=== PATIENT | female | born 1945 | race Caucasian/White ===

== ENCOUNTER 2018-12-29 18:57 | Inpatient (IN) | payer MEDICARE, MEDICAID ==
[~2018-12-29] VITALS: Ht 152.4 cm; Wt 81.6 kg
[~2018-12-29 18:57] MED LIST: ASPI-1159 PO; BENA40TA9 PO; CIPR-213 PO; GLIP5TAB12 PO; LOSA25TA12 PO; METF-416 PO; OMEP20CA4 PO; PANT40TA4 PO; PHEN-815 PO; SIMV40TA5 PO; SITA50TA3 PO
[2018-12-29] MEDS ORDERED: MORPHINE SULFATE 4 MG/ML CPJ (NOT FOR IM USE) IV STA (22:05)
[2018-12-29] MEDS ORDERED: KETOROLAC 30MG/ML VIAL IV STA (22:05)
[2018-12-29] MEDS ORDERED: FAMOTIDINE 20MG/2ML VIAL IV STA (22:05)
[2018-12-29] MEDS ORDERED: SODIUM CHLORIDE 0.9% 1,000 ML IV ONE (22:05)
[2018-12-29] MEDS ORDERED: ONDANSETRON HCL 4MG/2ML INJ IV STA (22:05)
[2018-12-29] MEDS ORDERED: METRONIDAZOLE 500 MG PREMIX 100 ML IV ONE (22:15)
[2018-12-29] MEDS ORDERED: PIPERACILLIN/TAZ 3.375G PREMIX 50 ML IV ONE (22:15)
[2018-12-29 22:38] LABS: BASOPHILS % 0.6 % (0.0-2.0); EOSINOPHILS % 0.5 % (0.0-5.0); HEMATOCRIT. 35.8 % (36.0-48.0); HEMOGLOBIN. 11.8 g/dL (12.0-16.0); LYMPHOCYTES % 25.8 % (20.0-50.0); MEAN CORPUSCULAR HEMOGLOBIN 27.8 pg (28.0-32.0); MEAN PLATELET VOLUME 7.7 fl (7.4-10.4); MONOCYTES % 10.5 % (2.0-8.0); NEUTROPHILS % 62.6 % (40.0-76.0); PLATELET 229 x1000/uL (130-400); RED BLOOD CELL COUNT 4.26 mill/uL (4.2-5.4); RED CELL DISTRIBUTION WIDTH 16.8 % (11.6-14.6)
[2018-12-29 22:43] LABS: CHLORIDE 97 mEq/L (98-107)
[2018-12-29 22:45] LABS: INR 1.2; PROTHROMBIN TIME 11.8 sec (9.1-11.1)
[2018-12-29 22:46] LABS: CLARITY URINE CLEAR (CLEAR); COLOR URINE YELLOW (YELLOW); KETONES URINE NEGATIVE (NEGATIVE); LEUKOCYTE ESTERASE URINE NEGATIVE (NEGATIVE); NITRITE URINE NEGATIVE (NEGATIVE); OCCULT BLOOD URINE NEGATIVE (NEGATIVE); PROTEIN URINE NEGATIVE (NEGATIVE); SPECIFIC GRAVITY URINE 1.004 (1.005-1.030); UROBILINOGEN URINE 0.2 E.U./dL (0.2-1.0)
[2018-12-29 22:47] LABS: ETHANOL BLOOD < 10 mg/dL
[2018-12-29 22:59] LABS: *AMPHETAMINES SCREEN URINE NEGATIVE (NEGATIVE); *BARBITURATES SCREEN URINE NEGATIVE (NEGATIVE); *BENZODIAZEPINES SCREEN URINE NEGATIVE (NEGATIVE); *COCAINE SCREEN URINE NEGATIVE (NEGATIVE)
[2018-12-29 23:00] LABS: CANNABINOID URINE SCREEN NEGATIVE (NEGATIVE); METHADONE URINE SCREEN NEGATIVE (NEGATIVE); OPIATES URINE SCREEN NEGATIVE (NEGATIVE); PHENCYCLIDINE URINE SCREEN NEGATIVE (NEGATIVE)
[2018-12-29] MEDS ORDERED: DEXTROSE 50% WATER 50ML SYRINGE IV ONE (23:15)
[2018-12-30] MEDS ORDERED: MORPHINE SULFATE 4 MG/ML CPJ (NOT FOR IM USE) IV ONE (00:45)
[2018-12-30] MEDS ORDERED: ONDANSETRON HCL 4MG/2ML INJ IV ONE (00:45)
[2018-12-30] MEDS ORDERED: DIPHENHYDRAMINE 50MG/ML VIAL IV PRN (07:15)
[2018-12-30] MEDS ORDERED: LORAZEPAM 2MG/ML CPJ IV PRN (07:15)
[2018-12-30] MEDS ORDERED: IPRATROPIUM/ALBUTEROL 0.5-3(2.5)MG/3ML NEB INH PRN (07:15)
[2018-12-30] MEDS ORDERED: CLONIDINE 0.1MG TABLET PO PRN (07:15)
[2018-12-30] MEDS ORDERED: ACETAMINOPHEN 325MG TABLET PO PRN (07:15)
[2018-12-30] MEDS ORDERED: GUAIFENESIN 200MG/10ML SUGAR FREE UDC PO PRN (07:15)
[2018-12-30] MEDS ORDERED: NA PHOS,M-B/NA PHOS,DI-BA ENEMA 118ML PR PRN (07:15)
[2018-12-30] MEDS ORDERED: MAGNESIUM/ALUMINUM HYDROXIDE/SIMETHICONE 30ML UDC PO PRN (07:15)
[2018-12-30] MEDS ORDERED: LEVOFLOXACIN 500MG PREMIX 100 ML IV SCH (08:00)
[2018-12-30] MEDS: ONDANSETRON HCL 4MG/2ML INJ IV PRN ×3 (08:49→21:10)
[2018-12-30 11:00] VITALS: BP 129/68
[2018-12-30] MEDS ORDERED: DEXTROSE 50% WATER 50ML SYRINGE IV PRN (12:15)
[2018-12-30 12:32] VITALS: BP 129/68
[2018-12-30 12:40] LABS: CHLORIDE 99 mEq/L (98-107)
[2018-12-30 13:00] VITALS: BP 126/69
[2018-12-30] MEDS ORDERED: MORPHINE SULFATE 4 MG/ML CPJ (NOT FOR IM USE) IV PRN (13:00)
[2018-12-30] MEDS: INSULIN LISPRO 100 UNITS/ML SUBCUT SCH ×3 (13:00→21:00)
[2018-12-30] MEDS: BLOOD SUGAR DIAGNOSTIC STRIP TEST SCH ×3 (13:31→21:10)
[2018-12-30] MEDS: DEXT 5%/0.45% NACL 1000ML 1,000 ML IV SCH (13:51)
[2018-12-30] MEDS: ENOXAPARIN 40MG/0.4ML SYR SUBCUT SCH (13:52)
[2018-12-30] MEDS ORDERED: INFLUENZA VIRUS VACCINE(AFLURIA) 0.5ML SYR IM ONE (14:00)
[2018-12-30] MEDS ORDERED: PNEUMOCOCCAL 23-VAL P-SAC VAC 0.5 ML IM ONE (14:00)
[2018-12-30] MEDS ORDERED: METRONIDAZOLE 500 MG PREMIX 100 ML IV SCH (14:00)
[2018-12-30] MEDS: METRONIDAZOLE 500 MG PREMIX 100 ML IV SCH ×2 (14:27→21:10)
[2018-12-30 16:00] VITALS: BP 116/64
[2018-12-30] MEDS: HYDROCODONE/ACETAMINOPHEN 5/325MG TABLET PO PRN (17:42)
[2018-12-30 20:00] VITALS: BP 124/61
[2018-12-31] VITALS: BP 96/50
[2018-12-31 04:00] VITALS: BP 123/52
[2018-12-31] MEDS: METRONIDAZOLE 500 MG PREMIX 100 ML IV SCH ×3 (05:21→21:05)
[2018-12-31] MEDS: HYDROCODONE/ACETAMINOPHEN 5/325MG TABLET PO PRN ×2 (05:29→16:59)
[2018-12-31] MEDS: BLOOD SUGAR DIAGNOSTIC STRIP TEST SCH ×4 (06:27→20:35)
[2018-12-31] MEDS: INSULIN LISPRO 100 UNITS/ML SUBCUT SCH ×4 (06:28→20:34)
[2018-12-31] MEDS: DOCUSATE SODIUM 100MG CAPSULE PO PRN (06:35)
[2018-12-31 07:02] LABS: HEMATOCRIT. 32.5 % (36.0-48.0); HEMOGLOBIN. 10.8 g/dL (12.0-16.0); MEAN CORPUSCULAR HEMOGLOBIN 27.8 pg (28.0-32.0); MEAN CORPUSCULAR VOLUME 83.7 fL (81.0-99.0); MEAN PLATELET VOLUME 8.3 fl (7.4-10.4); RED BLOOD CELL COUNT 3.89 mill/uL (4.2-5.4); RED CELL DISTRIBUTION WIDTH 17.3 % (11.6-14.6)
[2018-12-31 07:23] LABS: CHLORIDE 103 mEq/L (98-107)
[2018-12-31 07:35] LABS: T4 FREE 1.46 ng/dL (0.76-1.46)
[2018-12-31 07:37] LABS: LDL CHOLESTEROL 81 mg/dL (5-100)
[2018-12-31 07:38] LABS: HDL CHOLESTEROL 41 mg/dL (40-59)
[2018-12-31 08:00] VITALS: BP 112/55
[2018-12-31] MEDS ORDERED: LEVOFLOXACIN 500MG PREMIX 100 ML IV SCH (08:00)
[2018-12-31 08:43] LABS: PLATELET ESTIMATE NORMAL
[2018-12-31 08:44] LABS: PLATELET 175 x1000/uL (130-400)
[2018-12-31] MEDS: DEXT 5%/0.45% NACL 1000ML 1,000 ML IV SCH (12:29)
[2018-12-31] MEDS: ENOXAPARIN 40MG/0.4ML SYR SUBCUT SCH (12:29)
[2018-12-31 20:00] VITALS: BP 137/71
[2018-12-31] MEDS: ONDANSETRON HCL 4MG/2ML INJ IV PRN (20:33)
[2019-01-01] VITALS: BP 114/64
[2019-01-01] MEDS: HYDROCODONE/ACETAMINOPHEN 5/325MG TABLET PO PRN ×5 (03:28→21:30)
[2019-01-01 04:00] VITALS: BP 104/71
[2019-01-01] MEDS: METRONIDAZOLE 500 MG PREMIX 100 ML IV SCH ×3 (05:06→21:22)
[2019-01-01] MEDS: BLOOD SUGAR DIAGNOSTIC STRIP TEST SCH ×4 (06:10→21:23)
[2019-01-01] MEDS: INSULIN LISPRO 100 UNITS/ML SUBCUT SCH ×4 (06:10→21:35)
[2019-01-01 08:00] VITALS: BP 137/54
[2019-01-01] MEDS: LEVOFLOXACIN 500MG PREMIX 100 ML IV SCH (11:52)
[2019-01-01 12:00] VITALS: BP 152/71
[2019-01-01] MEDS: DEXT 5%/0.45% NACL 1000ML 1,000 ML IV SCH ×2 (13:07→21:29)
[2019-01-01] MEDS: ENOXAPARIN 40MG/0.4ML SYR SUBCUT SCH (13:07)
[2019-01-01 16:00] VITALS: BP 148/80
[2019-01-01] MEDS: ONDANSETRON HCL 4MG/2ML INJ IV PRN (18:17)
[2019-01-01] MEDS: DOCUSATE SODIUM 100MG CAPSULE PO PRN (18:17)
[2019-01-01 20:00] VITALS: BP 139/70
[2019-01-02] VITALS: BP 139/78
[2019-01-02] MEDS: HYDROCODONE/ACETAMINOPHEN 5/325MG TABLET PO PRN ×2 (03:34→21:01)
[2019-01-02 04:00] VITALS: BP 114/75
[2019-01-02] MEDS: ONDANSETRON HCL 4MG/2ML INJ IV PRN (04:27)
[2019-01-02] MEDS: METRONIDAZOLE 500 MG PREMIX 100 ML IV SCH ×3 (05:08→21:01)
[2019-01-02] MEDS: INSULIN LISPRO 100 UNITS/ML SUBCUT SCH ×4 (06:14→21:03)
[2019-01-02] MEDS: BLOOD SUGAR DIAGNOSTIC STRIP TEST SCH ×4 (06:14→20:46)
[2019-01-02 06:24] LABS: BASOPHILS % 1.9 % (0.0-2.0); HEMATOCRIT. 33.4 % (36.0-48.0); HEMOGLOBIN. 11.1 g/dL (12.0-16.0); LYMPHOCYTES % 30.6 % (20.0-50.0); MEAN CORPUSCULAR HEMOGLOBIN 27.8 pg (28.0-32.0); MEAN CORPUSCULAR VOLUME 84.1 fL (81.0-99.0); MEAN PLATELET VOLUME 7.5 fl (7.4-10.4); MONOCYTES % 12.4 % (2.0-8.0); NEUTROPHILS % 52.1 % (40.0-76.0); PLATELET 200 x1000/uL (130-400); RED BLOOD CELL COUNT 3.97 mill/uL (4.2-5.4); RED CELL DISTRIBUTION WIDTH 17.4 % (11.6-14.6)
[2019-01-02 06:41] LABS: CHLORIDE 102 mEq/L (98-107)
[2019-01-02] MEDS ORDERED: POTASSIUM CHLORIDE 20MEQ TABLET SR PO SCH (07:45)
[2019-01-02 08:00] VITALS: BP 127/65
[2019-01-02] MEDS: LEVOFLOXACIN 500MG PREMIX 100 ML IV SCH (08:34)
[2019-01-02 12:00] VITALS: BP 129/70
[2019-01-02] MEDS: ENOXAPARIN 40MG/0.4ML SYR SUBCUT SCH (13:15)
[2019-01-02 16:00] VITALS: BP 138/70
[2019-01-02 20:00] VITALS: BP 147/68
[2019-01-03] VITALS: BP 130/80
[2019-01-03] MEDS: HYDROCODONE/ACETAMINOPHEN 5/325MG TABLET PO PRN (02:01)
[2019-01-03 04:00] VITALS: BP 127/71
[2019-01-03] MEDS: METRONIDAZOLE 500 MG PREMIX 100 ML IV SCH (05:07)
[2019-01-03] MEDS: INSULIN LISPRO 100 UNITS/ML SUBCUT SCH (06:08)
[2019-01-03] MEDS: BLOOD SUGAR DIAGNOSTIC STRIP TEST SCH (06:08)
[2019-01-03 08:00] VITALS: BP 162/83
[2019-01-03] MEDS: LEVOFLOXACIN 500MG PREMIX 100 ML IV SCH (08:58)
[2019-01-03 09:00] VITALS: BP 125/78
[2019-01-03 09:30] VITALS: BP 125/70
== END 2019-01-03 10:25 | disposition home or self-care (01) | DRG 392 ==
LOC: ER 18:57 → 8WST 12-30 00:40 → EDBEDREQ 12-30 00:45 → EDBEDREQDT 12-30 00:45 → EDBEDREQSVC 12-30 00:45 → EDBEDREQTM 12-30 00:45 → ENRESERV 12-30 08:14
PROVIDERS: ADMIT Internal Medicine; ATTEND Internal Medicine
DX: K29.70 Gastritis, unspecified, without bleeding (principal); R65.10 Systemic inflammatory response syndrome (SIRS) of non-infectious origin without acute organ dysfunction; E86.0 Dehydration; I10 Essential (primary) hypertension; E11.9 Type 2 diabetes mellitus without complications; E78.00 Pure hypercholesterolemia, unspecified; I25.10 Atherosclerotic heart disease of native coronary artery without angina pectoris; Z79.82 Long term (current) use of aspirin; Z79.84 Long term (current) use of oral hypoglycemic drugs; Z79.899 Other long term (current) drug therapy
CPT/HCPCS: 36415; 71045; 74176; 76830; 76856; 80048; 80061; 80305; 80320; 82962; 83605; 83880; 84145; 84439; 84443; 84484; 90686; 93005; 96365; 96375; 99285; J1650; J1815; J1885; J1956; J2270; J2405; J2543; J3490; J7030; G0480

== ENCOUNTER 2020-05-11 10:18 | Inpatient (IN) | payer MEDICARE, MEDICAID ==
[~2020-05-11] VITALS: Ht 157.5 cm; Wt 64.9 kg
[~2020-05-11 10:18] MED LIST changes: -ASPI-1159 PO; +ASPI-1497 PO; -LOSA25TA12 PO; +LOSA25TA26 PO; +SIMV-46 PO; -SIMV40TA5 PO
[2020-05-11] MEDS ORDERED: MORPHINE SULFATE 4 MG/ML CPJ (NOT FOR IM USE) IV STA (10:59)
[2020-05-11 11:06] LABS: BASOPHILS % 1.3 % (0.0-2.0); EOSINOPHILS % 0.8 % (0.0-5.0); HEMATOCRIT. 34.4 % (36.0-48.0); HEMOGLOBIN. 11.6 g/dL (12.0-16.0); LYMPHOCYTES % 18.3 % (20.0-50.0); MEAN CORPUSCULAR VOLUME 83.3 fL (81.0-99.0); MEAN PLATELET VOLUME 7.2 fl (7.4-10.4); MONOCYTES % 7.8 % (2.0-8.0); NEUTROPHILS % 71.8 % (40.0-76.0); PLATELET 228 x1000/uL (130-400); RED BLOOD CELL COUNT 4.13 mill/uL (4.2-5.4); RED CELL DISTRIBUTION WIDTH 17.5 % (11.6-14.6)
[2020-05-11 11:14] LABS: CHLORIDE 95 mEq/L (98-107)
[2020-05-11] MEDS ORDERED: IOHEXOL-300 100 ML BOTTLE ONE (12:06)
[2020-05-11] MEDS ORDERED: SODIUM CHLORIDE 0.9% 1,000 ML IV ONE (13:00)
[2020-05-11 13:13] LABS: CLARITY URINE CLEAR (CLEAR); COLOR URINE YELLOW (YELLOW); KETONES URINE NEGATIVE (NEGATIVE); LEUKOCYTE ESTERASE URINE NEGATIVE (NEGATIVE); NITRITE URINE NEGATIVE (NEGATIVE); OCCULT BLOOD URINE NEGATIVE (NEGATIVE); PH URINE 6.5 (4.5-8.0); PROTEIN URINE NEGATIVE (NEGATIVE); SPECIFIC GRAVITY URINE 1.014 (1.005-1.030); UROBILINOGEN URINE 0.2 E.U./dL (0.2-1.0)
[2020-05-11] MEDS ORDERED: POLYETHYLENE GLYCOL 3350 (17GM) 1 DOSE PACK PO ONE (19:45)
[2020-05-11] MEDS ORDERED: MINERAL OIL ENEMA 133ML PR ONE (19:45)
[2020-05-11] MEDS ORDERED: MINERAL OIL 30ML BOTTLE PO ONE (19:45)
[2020-05-11 21:00] VITALS: BP 141/54
[2020-05-11 21:21] VITALS: BP 141/54
[2020-05-11] MEDS ORDERED: DEXTROSE 50% WATER 50ML SYRINGE IV PRN (22:45)
[2020-05-11] MEDS ORDERED: ONDANSETRON HCL 4MG/2ML INJ IV PRN (22:45)
[2020-05-11] MEDS ORDERED: CLONIDINE 0.1MG TABLET PO PRN (22:45)
[2020-05-12] VITALS: BP_SYST 114; BP_DIAS 43; BP_DIAS 52
[2020-05-12] MEDS: SODIUM CHLORIDE 0.9% 1,000 ML IV SCH ×2 (00:01→13:30)
[2020-05-12] MEDS: ATORVASTATIN CALCIUM 20MG TABLET PO SCH ×2 (00:03→21:57)
[2020-05-12 04:00] VITALS: BP 125/48
[2020-05-12] MEDS ORDERED: PNEUMOCOCCAL 23-VAL P-SAC VAC 0.5 ML IM ONE (06:00)
[2020-05-12 06:20] LABS: CHLORIDE 102 mEq/L (98-107)
[2020-05-12] MEDS: ACETAMINOPHEN 325MG TABLET PO PRN ×2 (06:23→13:29)
[2020-05-12] MEDS: BLOOD SUGAR DIAGNOSTIC STRIP TEST SCH ×4 (06:25→21:51)
[2020-05-12] MEDS: INSULIN LISPRO 100 UNITS/ML SUBCUT SCH ×4 (06:25→21:57)
[2020-05-12] MEDS: LACTULOSE 20G/30ML UDC PO SCH ×2 (06:27→13:30)
[2020-05-12 06:34] LABS: BASOPHILS % 0.9 % (0.0-2.0); EOSINOPHILS % 1.1 % (0.0-5.0); HEMATOCRIT. 31.6 % (36.0-48.0); HEMOGLOBIN. 10.7 g/dL (12.0-16.0); LYMPHOCYTES % 18.9 % (20.0-50.0); MEAN CORPUSCULAR HEMOGLOBIN 28.2 pg (28.0-32.0); MEAN CORPUSCULAR VOLUME 83.6 fL (81.0-99.0); MEAN PLATELET VOLUME 7.6 fl (7.4-10.4); MONOCYTES % 10.9 % (2.0-8.0); NEUTROPHILS % 68.2 % (40.0-76.0); PLATELET 217 x1000/uL (130-400); RED BLOOD CELL COUNT 3.77 mill/uL (4.2-5.4); RED CELL DISTRIBUTION WIDTH 17.2 % (11.6-14.6)
[2020-05-12] MEDS ORDERED: PANTOPRAZOLE 40MG DR TABLET PO SCH (06:45)
[2020-05-12 08:00] VITALS: BP 103/55
[2020-05-12] MEDS: ENOXAPARIN 40MG/0.4ML SYR SUBCUT SCH (09:15)
[2020-05-12] MEDS ORDERED: BISACODYL 10MG SUPP PR NR (10:30)
[2020-05-12] MEDS ORDERED: FAMOTIDINE 20MG/2ML VIAL IV SCH (10:30)
[2020-05-12] MEDS ORDERED: MAGNESIUM HYDROXIDE 400MG/5ML 30ML UDC PO NR (10:30)
[2020-05-12 12:00] VITALS: BP 121/67
[2020-05-12] MEDS ORDERED: NA PHOS,M-B/NA PHOS,DI-BA ENEMA 118ML PR PRN (15:45)
[2020-05-12 16:00] VITALS: BP 125/52
[2020-05-12] MEDS ORDERED: SORBITOL 70% SOLN 30ML PO NR (16:06)
[2020-05-12] MEDS ORDERED: MINERAL OIL ENEMA 133ML PR NR (17:00)
[2020-05-12 20:00] VITALS: BP 133/65
[2020-05-13] VITALS: BP 93/45
[2020-05-13] MEDS: SODIUM CHLORIDE 0.9% 1,000 ML IV SCH ×2 (02:35→15:16)
[2020-05-13 04:00] VITALS: BP 134/76
[2020-05-13] MEDS ORDERED: MORPHINE SULFATE 2 MG/ML CPJ (NOT FOR IM USE) IV PRN (04:15)
[2020-05-13 06:03] LABS: HEMATOCRIT. 31.9 % (36.0-48.0); HEMOGLOBIN. 10.5 g/dL (12.0-16.0); LYMPHOCYTES % 19.8 % (20.0-50.0); MEAN CORPUSCULAR HEMOGLOBIN 27.6 pg (28.0-32.0); MEAN CORPUSCULAR VOLUME 84.2 fL (81.0-99.0); MEAN PLATELET VOLUME 7.6 fl (7.4-10.4); MONOCYTES % 9.5 % (2.0-8.0); NEUTROPHILS % 68.7 % (40.0-76.0); PLATELET 229 x1000/uL (130-400); RED BLOOD CELL COUNT 3.79 mill/uL (4.2-5.4); RED CELL DISTRIBUTION WIDTH 17.5 % (11.6-14.6)
[2020-05-13 06:11] LABS: CHLORIDE 108 mEq/L (98-107)
[2020-05-13] MEDS: BLOOD SUGAR DIAGNOSTIC STRIP TEST SCH ×4 (06:45→21:28)
[2020-05-13] MEDS: INSULIN LISPRO 100 UNITS/ML SUBCUT SCH ×4 (07:15→21:28)
[2020-05-13 08:00] VITALS: BP 128/49
[2020-05-13] MEDS: FAMOTIDINE 20MG/2ML VIAL IV SCH (09:00)
[2020-05-13] MEDS: ENOXAPARIN 40MG/0.4ML SYR SUBCUT SCH (09:32)
[2020-05-13] MEDS: ACETAMINOPHEN 325MG TABLET PO PRN ×2 (11:21→18:50)
[2020-05-13 12:00] VITALS: BP 128/42
[2020-05-13 16:00] VITALS: BP 138/70
[2020-05-13 20:00] VITALS: BP 109/53
[2020-05-13] MEDS: ATORVASTATIN CALCIUM 20MG TABLET PO SCH (21:27)
[2020-05-14] VITALS: BP 114/53
[2020-05-14 04:00] VITALS: BP 127/52
[2020-05-14] MEDS: BLOOD SUGAR DIAGNOSTIC STRIP TEST SCH ×2 (06:02→12:01)
[2020-05-14] MEDS: INSULIN LISPRO 100 UNITS/ML SUBCUT SCH ×2 (06:04→12:24)
[2020-05-14 06:29] LABS: HEMATOCRIT 31.9 % (36.0-48.0); HEMOGLOBIN 10.3 g/dL (12.0-16.0); MEAN CORPUSCULAR HEMOGLOBIN 27.4 pg (28.0-32.0); MEAN CORPUSCULAR VOLUME 84.5 fL (81.0-99.0); PLATELET 217 x1000/uL (130-400); RED BLOOD CELL COUNT 3.77 mill/uL (4.2-5.4); RED CELL DISTRIBUTION WIDTH 17.8 % (11.6-14.6)
[2020-05-14 06:44] LABS: CHLORIDE 107 mEq/L (98-107)
[2020-05-14 08:00] VITALS: BP 145/70
[2020-05-14] MEDS: SODIUM CHLORIDE 0.9% 1,000 ML IV SCH (08:30)
[2020-05-14] MEDS: ENOXAPARIN 40MG/0.4ML SYR SUBCUT SCH (08:31)
[2020-05-14] MEDS: FAMOTIDINE 20MG/2ML VIAL IV SCH (08:31)
[2020-05-14 12:00] VITALS: BP 135/57
[2020-05-14 13:30] VITALS: BP 135/57
== END 2020-05-14 14:22 | disposition home or self-care (01) | DRG 389 ==
LOC: ER 10:18 → 5WST 17:16 → ENRESERV 20:21
PROVIDERS: ADMIT Internal Medicine; ATTEND Internal Medicine
DX: K56.41 Fecal impaction (principal); E87.1 Hypo-osmolality and hyponatremia; K80.10 Calculus of gallbladder with chronic cholecystitis without obstruction; R19.00 Intra-abdominal and pelvic swelling, mass and lump, unspecified site; I10 Essential (primary) hypertension; K57.90 Diverticulosis of intestine, part unspecified, without perforation or abscess without bleeding; D64.9 Anemia, unspecified; E11.9 Type 2 diabetes mellitus without complications; E78.00 Pure hypercholesterolemia, unspecified; E78.1 Pure hyperglyceridemia; E78.5 Hyperlipidemia, unspecified; T47.1X5A Adverse effect of other antacids and anti-gastric-secretion drugs, initial encounter; N83.9 Noninflammatory disorder of ovary, fallopian tube and broad ligament, unspecified; Y92.89 Other specified places as the place of occurrence of the external cause; Z79.899 Other long term (current) drug therapy; Z79.82 Long term (current) use of aspirin; Z79.84 Long term (current) use of oral hypoglycemic drugs
CPT/HCPCS: 36415; 71045; 74018; 74177; 76830; 76856; 80048; 80053; 80061; 81003; 82530; 82533; 82962; 83036; 83605; 84443; 85025; 85027; 86304; 99285; J1650; J1815; J2270; J3490; J7030; Q9967

== ENCOUNTER 2025-09-21 00:47 | Inpatient (IN) | payer OTHER ==
[2025-09-21] VITALS (51 sets, daily range): BP systolic 74–126; BP diastolic 47–103; PULSE 87–117; RESP 14–41; TEMP 36.1–36.6404; O2SAT 96–100
[~2025-09-21] VITALS: Ht 149.9 cm; Wt 60.8 kg
[~2025-09-21 00:47] MED LIST changes: -BENA40TA9 PO; +BENA40TA91 PO; -CIPR-213 PO; +FLUD0.1T PO; -GLIP5TAB12 PO; +GLIP5TAB22 PO; -METF-416 PO; +MIDO5TAB4 PO; -OMEP20CA4 PO; -PANT40TA4 PO; +PANT40TA51 PO; -PHEN-815 PO; -SITA50TA3 PO
[2025-09-21] MEDS ORDERED: IPRATROPIUM BROMIDE (0.02%) 0.5MG/2.5ML NEB HHN SCH (02:00)
[2025-09-21] MEDS ORDERED: ALBUTEROL (0.083%) 2.5MG/3ML NEB HHN SCH (02:00)
[2025-09-21 02:02] LABS: HEMATOCRIT. 30.9 % (36.0-48.0); HEMOGLOBIN. 9.7 g/dL (12.0-16.0); MEAN PLATELET VOLUME 8.0 fl (7.4-10.4); PLATELET 164 x1000/uL (130-400); RED BLOOD CELL COUNT 3.59 mill/uL (4.2-5.4); RED CELL DISTRIBUTION WIDTH 21.8 % (11.6-14.6)
[2025-09-21] MEDS: MAGNESIUM 2 G PREMIX 50 ML IV ONE ×2 (02:16→09:30)
[2025-09-21] MEDS: METHYLPREDNISOLONE SOD SUCC 125MG/2ML (ACT-O-VIAL) IV ONE (02:16)
[2025-09-21 02:18] LABS: UREA NITROGEN BLOOD 42 mg/dL (9-23)
[2025-09-21 02:20] LABS: ASPARTATE AMINOTRANSFERASE 56 IU/L (<34); BILIRUBIN DIRECT 0.4 mg/dL (<=3.0); BILIRUBIN TOTAL 0.6 mg/dL (0.1-1.0); PROTEIN TOTAL 7.0 g/dL (6.0-8.3)
[2025-09-21 02:22] LABS: CREATININE 1.5 mg/dL (0.6-1.0)
[2025-09-21 02:26] LABS: TROPONIN I HIGH SENSITIVITY 710 ng/L (3.0-34)
[2025-09-21] MEDS: ONDANSETRON HCL 4MG/2ML INJ IV ONE (03:14)
[2025-09-21] MEDS: CEFTRIAXONE 1GM/50ML 50 ML IV ONE (03:31)
[2025-09-21] MEDS: LEVETIRACETAM 500MG PREMIX 100 ML IV ONE (03:31)
[2025-09-21] MEDS: SODIUM CHLORIDE 0.9% 1,000 ML IV ONE (03:31)
[2025-09-21 03:40] LABS: INR 1.2
[2025-09-21] MEDS: NOREPINEPHRINE 8 MG in DEXT 5% WATER 242 ML IV STA (04:21)
[2025-09-21] MEDS: NOREPINEPHRINE 8MG/250ML PMX 250 ML IV STA (05:16)
[2025-09-21] MEDS: IPRATROPIUM/ALBUTEROL 0.5-3(2.5)MG/3ML NEB HHN PRN (05:34)
[2025-09-21] MEDS ORDERED: LEVETIRACETAM 500MG PREMIX 100 ML IV SCH (06:00)
[2025-09-21 06:25] LABS: BAND% 24.0 % (1.0-6.0); LYMPHOCYTES % MANUAL 5.0 % (20.0-60.0); METAMYELOCYTES % 2.0 % (0-0); MONOCYTES % MANUAL 1.0 % (2.0-8.0); NEUTROPHILS % MANUAL 68.0 % (45.0-75.0); PLATELET ESTIMATE NORMAL
[2025-09-21 06:55] LABS: PHOSPHORUS 4.2 mg/dL (2.5-4.9)
[2025-09-21] MEDS ORDERED: ACETAMINOPHEN 325MG TABLET PO PRN (07:15)
[2025-09-21] MEDS ORDERED: NICARDIPINE 50 MG in SODIUM CHLORIDE 0.9% 230 ML IV PRN (07:15)
[2025-09-21] MEDS ORDERED: DEXTROSE 50% WATER 50ML SYRINGE IV PRN (07:15)
[2025-09-21] MEDS ORDERED: SODIUM CHLORIDE 0.9% 1,000 ML IV SCH (07:15)
[2025-09-21] MEDS ORDERED: NALOXONE HCL 0.4MG/ML VIAL IV PRN (07:30)
[2025-09-21] MEDS ORDERED: VASOPRESSIN 20 UNIT in SODIUM CHLORIDE 0.9% 99 ML IV PRN (07:45)
[2025-09-21] MEDS ORDERED: PHENYLEPHRINE 50MG/250ML PMX 250 ML IV PRN (07:45)
[2025-09-21] MEDS ORDERED: VANCOMYCIN 1000MG/250ML 250 ML IV SCH (08:00)
[2025-09-21] MEDS ORDERED: PIPERACILLIN/TAZO 3.375G/50ML 50 ML IV SCH (08:00)
[2025-09-21] MEDS: BLOOD SUGAR DIAGNOSTIC STRIP TEST SCH (08:29)
[2025-09-21] MEDS: DEXT 5%/LACTATED RINGERS 1,000 ML IV SCH (08:47)
[2025-09-21] MEDS: PIPERACILLIN/TAZO 3.375G/50ML 50 ML IV SCH (08:47)
[2025-09-21] MEDS: LEVETIRACETAM 500MG PREMIX 100 ML IV SCH (08:47)
[2025-09-21] MEDS: NOREPINEPHRINE 8MG/250ML PMX 250 ML IV PRN (08:48)
[2025-09-21] MEDS: PANTOPRAZOLE SODIUM 40 MG/VIAL IV SCH (08:50)
[2025-09-21] MEDS: INSULIN LISPRO 100 UNITS/ML SUBCUT SCH (08:54)
[2025-09-21] MEDS ORDERED: PANTOPRAZOLE SODIUM 40 MG/VIAL IV SCH (09:00)
[2025-09-21] MEDS: VANCOMYCIN 1GM PMX (XELLIA) 200 ML IV SCH (09:44)
[2025-09-21 11:59] LABS: PLATELET 134 x1000/uL (130-400); RED BLOOD CELL COUNT 3.27 mill/uL (4.2-5.4); RED CELL DISTRIBUTION WIDTH 21.7 % (11.6-14.6)
[2025-09-21 12:17] LABS: CREATININE 1.3 mg/dL (0.6-1.0)
[2025-09-21 12:18] LABS: UREA NITROGEN BLOOD 39 mg/dL (9-23)
[2025-09-21 12:20] LABS: PHOSPHORUS 3.9 mg/dL (2.5-4.9)
[2025-09-21 14:08] LABS: CLARITY URINE CLOUDY (CLEAR); COLOR URINE YELLOW (YELLOW); GLUCOSE URINE NEGATIVE (NEGATIVE); KETONES URINE 1+ (NEGATIVE); LEUKOCYTE ESTERASE URINE 2+ (NEGATIVE); NITRITE URINE NEGATIVE (NEGATIVE); OCCULT BLOOD URINE 3+ (NEGATIVE); PH URINE 6.5 (4.5-8.0); PROTEIN URINE 2+ (NEGATIVE); SPECIFIC GRAVITY URINE 1.019 (1.005-1.030); UROBILINOGEN URINE 1.0 E.U./dL (0.2-1.0)
[2025-09-21] MEDS: KCL 20MEQ/100ML PREMIX 100 ML IV NR ×2 (16:20)
[2025-09-21 16:48] LABS: BACTERIA URINE TRACE; RBC URINE 50-100 /hpf (0-2); SQUAMOUS EPITHELIAL CELL URINE RARE /lpf (RARE/1+); WBC URINE 25-50 /hpf (0-2)
[2025-09-21 16:49] LABS: MUCUS URINE 1+ /lpf (< = 2+)
[2025-09-21] MEDS ORDERED: GUAIFENESIN-DM 200MG-20MG/10ML UDC PO PRN (18:45)
[2025-09-22] VITALS (12 sets, daily range): BP systolic 95–121; BP diastolic 45–71; PULSE 82–97; RESP 15–33; TEMP 36.2–36.8; O2SAT 96–100
[2025-09-22 05:34] LABS: HEMATOCRIT. 27.2 % (36.0-48.0); HEMOGLOBIN. 8.6 g/dL (12.0-16.0); MEAN PLATELET VOLUME 8.3 fl (7.4-10.4); PLATELET 87 x1000/uL (130-400); RED BLOOD CELL COUNT 3.15 mill/uL (4.2-5.4); RED CELL DISTRIBUTION WIDTH 21.4 % (11.6-14.6)
[2025-09-22 06:01] LABS: CREATININE 1.0 mg/dL (0.6-1.0); UREA NITROGEN BLOOD 41.0 mg/dL (9-23)
[2025-09-22] MEDS ORDERED: INFLUENZA VACCINE 05/PF 0.5 ML SYRINGE IM ONE (09:00)
[2025-09-22] MEDS: KCL 20MEQ/100ML PREMIX 100 ML IV NR (09:28)
[2025-09-22] MEDS: HYDROCODONE/ACETAMINOPHEN 5/325MG TABLET PO PRN (11:34)
[2025-09-22] MEDS: VANCOMYCIN 500MG/100ML IV SCH (12:10)
[2025-09-22] MEDS: KCL 20MEQ/100ML PREMIX 100 ML IV SCH (12:47)
[2025-09-22] MEDS: POTASSIUM CHLORIDE 20MEQ TABLET SR PO NR (15:20)
[2025-09-22 16:39] LABS: LYMPHOCYTES % MANUAL 5.0 % (20.0-60.0); MONOCYTES % MANUAL 2.0 % (2.0-8.0); NEUTROPHILS % MANUAL 93.0 % (45.0-75.0); PLATELET ESTIMATE DECREASED
[2025-09-22] MEDS: CEFEPIME 2GM/100ML 100 ML IV SCH (22:06)
[2025-09-23] VITALS (12 sets, daily range): BP systolic 97–124; BP diastolic 46–92; PULSE 86–106; RESP 15–39; TEMP 36.2–36.7; O2SAT 90–100
[2025-09-23 07:20] LABS: CREATININE 0.7 mg/dL (0.6-1.0); UREA NITROGEN BLOOD 34 mg/dL (9-23)
[2025-09-23 16:16] LABS: HEMATOCRIT. 29.8 % (36.0-48.0); HEMOGLOBIN. 9.1 g/dL (12.0-16.0); MEAN PLATELET VOLUME 8.9 fl (7.4-10.4); PLATELET 65 x1000/uL (130-400); RED BLOOD CELL COUNT 3.43 mill/uL (4.2-5.4); RED CELL DISTRIBUTION WIDTH 21.1 % (11.6-14.6)
[2025-09-23] MEDS: ATORVASTATIN CALCIUM 40MG TABLET PO SCH (20:54)
[2025-09-24] VITALS (12 sets, daily range): BP systolic 106–128; BP diastolic 54–76; PULSE 102–119; RESP 17–38; TEMP 36.3–36.8; O2SAT 98–100
[2025-09-24 00:34] LABS: BAND% 1.0 % (1.0-6.0); LYMPHOCYTES % MANUAL 3.0 % (20.0-60.0); MONOCYTES % MANUAL 4.0 % (2.0-8.0); NEUTROPHILS % MANUAL 92.0 % (45.0-75.0); PLATELET ESTIMATE DECREASED
[2025-09-24] MEDS ORDERED: LIDOCAINE HCL 1% 10 MG/ML 10ML VIAL ONE (07:46)
[2025-09-24 17:59] LABS: HEMATOCRIT. 26.5 % (36.0-48.0); HEMOGLOBIN. 8.3 g/dL (12.0-16.0); MEAN PLATELET VOLUME 9.2 fl (7.4-10.4); PLATELET 58 x1000/uL (130-400); RED BLOOD CELL COUNT 3.10 mill/uL (4.2-5.4); RED CELL DISTRIBUTION WIDTH 20.9 % (11.6-14.6)
[2025-09-24 19:40] LABS: EOSINOPHILS % MANUAL 4.0 % (0.0-5.0); LYMPHOCYTES % MANUAL 18.0 % (20.0-60.0); MONOCYTES % MANUAL 6.0 % (2.0-8.0); NEUTROPHILS % MANUAL 72.0 % (45.0-75.0); PLATELET ESTIMATE MARKEDLY INCREASED
[2025-09-24] MEDS: ONDANSETRON HCL 4MG/2ML INJ IV PRN (21:15)
[2025-09-24] MEDS: MORPHINE SULFATE 2 MG/ML INJ (NOT FOR IM USE) IV PRN (22:30)
[2025-09-25] VITALS (12 sets, daily range): BP systolic 91–123; BP diastolic 54–67; PULSE 105–119; RESP 19–39; TEMP 36.3–37.1; O2SAT 96–100
[2025-09-25] MEDS: CEFTRIAXONE 2GM/50ML 50 ML IV SCH (11:25)
[2025-09-25] MEDS: SODIUM CHLORIDE 0.9% 500 ML IV NR (19:55)
[2025-09-26] VITALS (12 sets, daily range): BP systolic 100–135; BP diastolic 52–80; PULSE 106–121; RESP 20–38; TEMP 36.4–37.1; O2SAT 96–100
[2025-09-26] MEDS ORDERED: SODIUM CHLORIDE 0.9% 100 ML IV ONE (16:45)
[2025-09-26] MEDS: SODIUM CHLORIDE 0.9% 1,000 ML IV ONE (17:43)
[2025-09-26 18:56] LABS: BASOPHILS % 0.3 % (0.0-2.0); EOSINOPHILS % 3.4 % (0.0-5.0); HEMATOCRIT. 22.2 % (36.0-48.0); HEMOGLOBIN. 7.1 g/dL (12.0-16.0); LYMPHOCYTES % 9.5 % (20.0-50.0); MEAN PLATELET VOLUME 8.8 fl (7.4-10.4); MONOCYTES % 4.5 % (2.0-8.0); NEUTROPHILS % 82.3 % (40.0-76.0); PLATELET 83 x1000/uL (130-400); RED BLOOD CELL COUNT 2.57 mill/uL (4.2-5.4); RED CELL DISTRIBUTION WIDTH 21.1 % (11.6-14.6)
[2025-09-26 19:15] LABS: CREATININE 0.5 mg/dL (0.6-1.0); UREA NITROGEN BLOOD 15 mg/dL (9-23)
[2025-09-27] VITALS (12 sets, daily range): BP systolic 105–141; BP diastolic 50–71; PULSE 102–123; RESP 19–40; TEMP 36.3–36.8; O2SAT 97–100
[2025-09-27] MEDS ORDERED: IOHEXOL-350 100 ML BOTTLE ONE (10:13)
[2025-09-27 13:52] LABS: PLATELET 110 x1000/uL (130-400); RED BLOOD CELL COUNT 2.62 mill/uL (4.2-5.4); RED CELL DISTRIBUTION WIDTH 21.1 % (11.6-14.6)
[2025-09-27] MEDS: LORAZEPAM 2MG/ML UD SYRINGE IV PRN (23:58)
[2025-09-28] VITALS (18 sets, daily range): BP systolic 104–140; BP diastolic 55–83; PULSE 99–119; RESP 18–45; TEMP 36.3–37.11408; O2SAT 78–100
[2025-09-28 12:36] LABS: INR 1.1
[2025-09-28] MEDS: HYDROCODONE/ACETAMINOPHEN 5/325MG TABLET PO PRN (17:31)
[2025-09-28 22:04] LABS: PLATELET 135 x1000/uL (130-400); RED BLOOD CELL COUNT 3.78 mill/uL (4.2-5.4); RED CELL DISTRIBUTION WIDTH 19.1 % (11.6-14.6)
[2025-09-29] VITALS (9 sets, daily range): BP systolic 94–147; BP diastolic 49–96; PULSE 107–121; RESP 16–44; TEMP 36.5–37.1; O2SAT 97–100
== END 2025-09-29 14:44 | DRG 871 ==
LOC: ER 00:47 → MICUNO 03:47 → EDBEDREQSVC 03:55 → EDBEDREQTM 03:55 → EDBEDREQ 03:55 → ENRESERV 04:54 → 5EST 20:26
PROVIDERS: ADMIT Internal Medicine; ATTEND Internal Medicine
PROC: 02HV33Z Insertion of Infusion Device into Superior Vena Cava, Percutaneous Approach (ICD-10-PCS; principal; 2025-09-24)
PROC: B548ZZA Ultrasonography of Superior Vena Cava, Guidance (ICD-10-PCS; 2025-09-24)
PROC: 30233N1 Transfusion of Nonautologous Red Blood Cells into Peripheral Vein, Percutaneous Approach (ICD-10-PCS; 2025-09-28)
DX: A41.59 Other Gram-negative sepsis (principal); J18.9 Pneumonia, unspecified organism; L89.153 Pressure ulcer of sacral region, stage 3; S06.6X0A Traumatic subarachnoid hemorrhage without loss of consciousness, initial encounter; J96.21 Acute and chronic respiratory failure with hypoxia; R65.21 Severe sepsis with septic shock; G93.40 Encephalopathy, unspecified; D50.9 Iron deficiency anemia, unspecified; E11.9 Type 2 diabetes mellitus without complications; J44.0 Chronic obstructive pulmonary disease with (acute) lower respiratory infection; N39.0 Urinary tract infection, site not specified; N17.9 Acute kidney failure, unspecified; D69.6 Thrombocytopenia, unspecified; I11.0 Hypertensive heart disease with heart failure; I50.32 Chronic diastolic (congestive) heart failure; E87.1 Hypo-osmolality and hyponatremia; D64.9 Anemia, unspecified; J84.10 Pulmonary fibrosis, unspecified; R32 Unspecified urinary incontinence; L22 Diaper dermatitis; E78.00 Pure hypercholesterolemia, unspecified; W18.30XA Fall on same level, unspecified, initial encounter; Y93.89 Activity, other specified; Y92.89 Other specified places as the place of occurrence of the external cause; Y99.8 Other external cause status
CPT/HCPCS: 36415; 36573; 70551; 70552; 71045; 71275; 72170; 80048; 80076; 81003; 82962; 83036; 83605; 83735; 83880; 84100; 84145; 84484; 85014; 85018; 85025; 85027; 85049; 85379; 85384; 86850; 86900; 86920; 87077; 87186; 92610; 93005; 93970; 94070; 94640; 94664; 96365; 96367; 96375; 97162; 97167; 97535; 99291; A4606; A6261; C1725; C1769; J0692; J0696; J1815; J1953; J2003; J2060; J2270; J2405; J2470; J2543; J2919; J3373; J3475; J3480; J3490; J7030; J7060; J7121; P9016; Q9967